=== PATIENT | male | born 1935 | race Caucasian/White ===

== ENCOUNTER 2018-05-05 19:21 | Inpatient (IN) | payer MEDICARE, BC ==
[~2018-05-05] VITALS: Ht 175.3 cm; Wt 80.3 kg
[~2018-05-05 19:21] MED LIST: ACET325T53 PO; ALBUT2 HHN; ASPI-605 PO; CHOL20004 PO; DOCU100C36 PO; DOFE125C PO; DOXA4TAB3 PO; FINA5TAB4 PO; FURO-145 PO; HYDR-4076 PO; IPRA0.2S49 NEB; IRBE150T28 PO; LORA1TAB PO; METO25TA6 PO; ONDA4TAB11 PO; PANT40TA4 PO; POLY250017 PO; ROSU5TAB PO; SIME80TA15 PO; WARF4TAB72 PO; [UNRECOGNIZED DRUG - CODE] PO
[2018-05-06] MEDS: ACETAMINOPHEN 325 MG TABLET PO PRN ×2 (04:56→13:48)
[2018-05-06] MEDS ORDERED: MAGNESIUM HYDROXIDE 30 ML UDC PO PRN (05:00)
[2018-05-06] MEDS ORDERED: MAG HYDROX/AL HYDROX/SIMETH 30 ML UDC PO PRN (05:00)
[2018-05-06] MEDS ORDERED: TEMAZEPAM 7.5 MG CAPSULE PO PRN (05:00)
[2018-05-06 05:24] VITALS: BP 143/63
--- NOTE | 2018-05-06 06:20 | NUR ---
GPS FREELANCE PHOTOGRAPHER NOTES: ADMITTED AN 82YO MALE FROM [facility] ON 5150 HOLD FOR DANGER TO SELF. PER HOLD PATIENT IS ADMITTING TO HAVING THOUGHTS OR SUICIDE HOWEVER NOT ABLE TO STATE ANY ACTIVE PLANS TO CARRY IT OUT. PATIENT RECENTLY LOSS HIS AND HE HAS BEEN EXPRESSING THAT HE HAS NO REASON TO LOVE LIFE ANYMORE. PATIENT IS UNDER THE CARE OF DR. RAY AND BRIDGETT MACHADO NP FOR PSYCH AND MEDICAL. PATIENT BROUGHT IN THE UNIT VIA GURNEY, AND THEN USHERED INTO THE ROOM. CHANGED INTO PATIENT'S GOWN. UPON FACE TO FACE ASSESSMENT, PATIENT PRESENTS ALERT AND ORIENTED X3, COMPLAINED OF HEADACHE AT THIS TIME. HE APPEARS, DISHEVELED, UNKEMPT, WITH NOTED EPISODES OF CONFUSION, HAS PERIODS OF IRRITABILITY. PATIENT IS ABLE TO WALK WITH THE AID OF A CANE- CANE PLACED IN THE UTILITY ROOM FOR SAFEKEEPING . REALITY ORIENTATION DONE. ORIENTATION TO UNIT, STAFF, POLICIES, CARE PLAN AND DOCTORS DONE. Q15 MIN CHECKS INITIATED. CARE PLAN STARTED. DR. RAY INFORMED OF THIS ADMISSION. BELONGINGS AND CONTRABAND CHECKED. SKIN AND BODY ASSESSMENT DONE WITH RAUL Patrick RN AND TAMICA REESE. PICTURES TAKEN AND PLACED IN THE CHART. GAVE PATIENT SOME TIME TO REST AND SLEEP. PROVIDED A SLEEP CONDUCIVE ENVIRONMENT. WILL MONITOR PATIENT FOR MOOD, SAFETY AND BEHAVIOR.
[2018-05-06 07:54] LABS: CALCIUM, SERUM 8.9 mg/dL (8.5-10.1); CARBON DIOXIDE 27 mmol/L (21-32); CHLORIDE 99 mmol/L (98-107); CREATININE 0.9 mg/dL (0.6-1.3); GLUCOSE 108 mg/dL (74-106); POTASSIUM 4.4 mmol/L (3.5-5.1); SODIUM SERUM 133 mmol/L (136-145); UREA NITROGEN, BLOOD 15 mg/dL (7-18)
[2018-05-06 07:59] LABS: ALANINE AMINOTRANSFERASE 20 U/L (12-78); ALBUMIN 3.2 g/dL (3.4-5.0); ALKALINE PHOSPHATASE 50 U/L (46-116); ASPARTATE AMINOTRANSFERASE 14 U/L (15-37); BILIRUBIN,TOTAL 0.5 mg/dL (0.2-1.0); TOTAL PROTEIN, SERUM 5.3 g/dL (6.4-8.2)
[2018-05-06] MEDS: LORAZEPAM 0.5 MG TABLET PO PRN ×2 (10:38→22:57)
--- NOTE | 2018-05-06 10:47 | NUR ---
SAE contacted pts brother Suzanne [phone] to inform him pts heart medication Tikosyn needed to be brought to him due to the hospital pharmacy not carrying that medication. Brother stated he would bring pts medication on this present day.
--- NOTE | 2018-05-06 10:49 | NUR ---
SAE spoke to pts daughter Lucina [phone] regarding pts discharge plan and collateral information. SW also informed her pt was currently on a 5150 hold for danger to self. Daughter informed SW that pts 23 years ago and pt has a long history of Depression and has been refusing to take medications and also refusing care. Daughter mentioned that pt will be discharged back home and has limited support from his brother Suzanne who sometimes stays a couple of days out of the week to help pt. SAE will refer pt to home health once discharged.
[2018-05-06] MEDS ORDERED: WARF3TAB59 PO (12:30)
[2018-05-06] MEDS ORDERED: METO100T7 PO (12:37)
[2018-05-06] MEDS ORDERED: LOSA50TA39 PO (12:40)
[2018-05-06] MEDS ORDERED: AMLO5TAB4 PO (12:41)
[2018-05-06] MEDS ORDERED: CHOL200026 PO (13:35)
[2018-05-06] MEDS ORDERED: CYAN-6 PO (13:37)
[2018-05-06] MEDS ORDERED: CYAN100096 PO (13:42)
[2018-05-06] MEDS ORDERED: NITR0.4T48 SL (14:06)
[2018-05-06] MEDS ORDERED: NITROGLYCERIN 0.4 MG/TAB BOTTLE SL PRN (15:30)
[2018-05-06] MEDS ORDERED: LOSARTAN POTASSIUM 50 MG TABLET PO SCH (15:30)
[2018-05-06] MEDS ORDERED: DOXAZOSIN MESYLATE (4 MG) 4 MG TABLET PO SCH (15:30)
[2018-05-06] MEDS ORDERED: FINASTERIDE (5 MG) 5 MG TABLET PO SCH (15:30)
[2018-05-06] MEDS: ASPIRIN EC 81 MG TABLET.DR PO SCH (15:39)
[2018-05-06] MEDS: CHOLECALCIFEROL 1,000 UNIT TABLET (VIT D3) PO SCH (15:39)
[2018-05-06] MEDS: TIKOSYN 500 MCG PO SCH (15:56)
[2018-05-06] MEDS: CYANOCOBALAMIN 500 MCG TABLET PO SCH (15:58)
[2018-05-06 16:00] VITALS: BP 149/61
[2018-05-06] MEDS: LORAZEPAM 1 MG TABLET PO SCH (16:01)
[2018-05-06] MEDS: PANTOPRAZOLE 40 MG TABLET.DR PO SCH (16:01)
[2018-05-06] MEDS: METOPROLOL SUCCINATE 50 MG TAB.SR.24H PO SCH (16:10)
[2018-05-06] MEDS ORDERED: AMLODIPINE BESYLATE 5 MG TABLET PO SCH (17:00)
[2018-05-06 20:21] VITALS: BP 125/59
[2018-05-06] MEDS ORDERED: clonazePAM 0.5 MG TABLET PO PRN (20:30)
[2018-05-06 22:00] VITALS: BP 166/76
[2018-05-06] MEDS: DOXAZOSIN MESYLATE (4 MG) 4 MG TABLET PO SCH (22:23)
[2018-05-06] MEDS: FINASTERIDE (5 MG) 5 MG TABLET PO SCH (22:23)
[2018-05-06] MEDS: AMLODIPINE BESYLATE 5 MG TABLET PO SCH (22:24)
[2018-05-06] MEDS: LOSARTAN POTASSIUM 50 MG TABLET PO SCH (22:24)
--- NOTE | 2018-05-06 22:41 | NUR ---
RECEIVED PATIENT IN THE ROOM ALERT, ORIENTED X 3 DENIES ANY PAIN OR N/V AT THIS TIME ALL NIGHT B.P MEDICATION ADMINISTERED TO THE PATIENT SUDDENLY PATIENT STATED HE WANTS HIS METOPROLOL RIGHT NOW EXPLAIN PATIENT X 3 METOPROLOL IS NOT DUE UNTIL MORNING BUT PATIENT PATIENT CONTINUES ASKING HIS METOPROLOL SAYING I NEED TO CALL MY PRIMARY FROM OUT SIDE. PATIENT IS VERY ANXIOUS AT THIS TIME ATIVAN 0.5 ADMINISTERED ORDERED WILL CONTINUES TO MONITOR THE PATIENT FOR SAFETY.
[2018-05-06 23:00] VITALS: BP 150/70
--- NOTE | 2018-05-06 23:00 | NUR ---
GPS RN NOTE: PT.C/O VERY ANXIOUS SCREAMING YELLING RESTLESS BP 150 /70 ,ATIVAN 0.5 MG PO PRN GIVEN , WILL CONTINUE TO MONITOR.
[2018-05-07] VITALS: BP 145/68
--- NOTE | 2018-05-07 02:35 | NUR ---
GPS RN NOTES: PATIENT'S VITAL SIGNS TAKEN. BP 141/61, HR-64, O2 SAT- 97%. PATIENT NOTED TO BE ANXIOUS AND FOCUSED ON HIS MEDICATION. REASSURED PATIENT OF NURSES PRESENCE AND TO ASK FOR HELP WHENEVER HE FEELS UNSAFE. WILL KEEP MONITORING PATIENT'S MOOD,HIS SAFETY AND BEHAVIOR WELL.
[2018-05-07] MEDS: TIKOSYN 500 MCG PO SCH ×2 (07:57→16:42)
[2018-05-07] MEDS: METOPROLOL SUCCINATE 50 MG TAB.SR.24H PO SCH (07:58)
[2018-05-07] MEDS: CHOLECALCIFEROL 1,000 UNIT TABLET (VIT D3) PO SCH (07:58)
[2018-05-07] MEDS: LORAZEPAM 1 MG TABLET PO SCH ×3 (07:58→16:42)
[2018-05-07] MEDS: CYANOCOBALAMIN 500 MCG TABLET PO SCH (07:58)
[2018-05-07] MEDS: ASPIRIN EC 81 MG TABLET.DR PO SCH (07:58)
[2018-05-07] MEDS: PANTOPRAZOLE 40 MG TABLET.DR PO SCH ×2 (07:58→16:42)
[2018-05-07 08:00] VITALS: BP 144/72
[2018-05-07] MEDS: ATORVASTATIN 10 MG TABLET PO SCH (08:03)
[2018-05-07] MEDS ORDERED: METOPROLOL SUCCINATE 50 MG TAB.SR.24H PO SCH (09:00)
--- NOTE | 2018-05-07 09:39 | NUR ---
INITIAL DISCHARGE PLAN: Patient wishes to be discharged home [address] [place] [address]. Pts daughter Lucina [phone] stated pt is able to return home. SW will help form a safe and proper discharge in collaboration with MD.
[2018-05-07 16:00] VITALS: BP_SYST 108; BP_SYST 120; BP_DIAS 54; BP_DIAS 69
[2018-05-07] MEDS ORDERED: WARFARIN SODIUM 1 MG TABLET PO SCH (17:00)
[2018-05-07 19:48] VITALS: BP 138/64
[2018-05-07] MEDS: FINASTERIDE (5 MG) 5 MG TABLET PO SCH (21:11)
[2018-05-07] MEDS: DOXAZOSIN MESYLATE (4 MG) 4 MG TABLET PO SCH (21:11)
[2018-05-07] MEDS: LOSARTAN POTASSIUM 50 MG TABLET PO SCH (21:11)
[2018-05-07] MEDS: AMLODIPINE BESYLATE 5 MG TABLET PO SCH (21:12)
[2018-05-07] MEDS: LORAZEPAM 0.5 MG TABLET PO PRN (22:23)
[2018-05-08 08:00] VITALS: BP 140/64
[2018-05-08] MEDS: ATORVASTATIN 10 MG TABLET PO SCH (09:00)
--- NOTE | 2018-05-08 09:00 | NUR ---
RN-CO: DR RAY ORDERED TO DISCONTINUE HOLD AND DISCHARGE PATIENT WITH DAUGHTER.NOTED. PATIENT DENIED SI/HI. DENIED AUDITORY AND VISUAL HALLUCINATION.
--- NOTE | 2018-05-08 09:37 | NUR ---
SW received a call from pts melecio Oliveros [phone] requesting pt be discharged immediately stating that if pt is not discharged she will get her master control engineer involved. SW explained that pt is currently on a 5150 hold for danger to self and cannot be discharged unless the psychiatrist Dr. Ceballos breaks the hold and feels pt is stable for discharge. SW asked daughter if she has DPOA and she stated she did not. Daughter asked SW to contact Dr Ceballos and ask him to discharge. SW stated she would contact Psychiatrist and explain she is requesting discharge as soon as possible for pt.
--- NOTE | 2018-05-08 09:44 | NUR ---
SW contacted Dr. Ceballos and broke pts hold.
--- NOTE | 2018-05-08 09:45 | NUR ---
SAE contacted pts daughter Arlin [phone] Ceballos has discharged pt. She stated pts brother Suzanne will be coming to pick pt up and transporting home.
[2018-05-08] MEDS: ASPIRIN EC 81 MG TABLET.DR PO SCH (10:11)
[2018-05-08] MEDS: CHOLECALCIFEROL 1,000 UNIT TABLET (VIT D3) PO SCH (10:12)
[2018-05-08] MEDS: CYANOCOBALAMIN 500 MCG TABLET PO SCH (10:12)
[2018-05-08] MEDS: PANTOPRAZOLE 40 MG TABLET.DR PO SCH (10:13)
[2018-05-08] MEDS: METOPROLOL SUCCINATE 50 MG TAB.SR.24H PO SCH (10:13)
[2018-05-08] MEDS: LORAZEPAM 1 MG TABLET PO SCH ×2 (10:20→12:15)
[2018-05-08] MEDS: TIKOSYN 500 MCG PO SCH (10:21)
--- NOTE | 2018-05-08 12:31 | NUR ---
GPS RN NOTE: RECEIVED D/C ORDER FROM DR. RAY AND TO CONTINUE KLONOPIN ONLY ORDERED NOTED AND CARRIED OUT.
--- NOTE | 2018-05-08 14:58 | NUR ---
DISCHARGE NOTE: Pt will be discharged at 3:30pm [address] [facility] [address] [facility] [place] [address]. Pts brother Suzanne [phone] will be transporting pt home. Pts mood was euthymic with congruent affect. Pt denied visual/auditory hallucinations and denied suicidal/homicidal ideations. Pts daughter stated she would schedule a follow up appointment with Psychiatrist: Dr. Davy Haq [address], [place] [address] [phone]. faxed JODI paperwork to [phone]. Pt will also follow up with Digital Imaging Technician: Dr. Jacobo Joseph [address], [place] [address] [phone]. The multidisciplinary exitcare form was done, printed, signed, and given to the patient.
[2018-05-08 16:00] VITALS: BP 136/63
--- NOTE | 2018-05-08 16:02 | NUR ---
PATIENT DISCHARGE TO HOME PICKED UP BY THE BROTHER, NO SOB, NO ACUTE DISTRESS, BREATHING EVEN AND UNLABORED, NO S/S OF PAIN AND DISCOMFORT, DENIES SI/HI, PATIENT ASSISTED DOWN TO ELEVATOR VIA WHEELCHAIR
== END 2018-05-08 16:02 | disposition home or self-care (01) | DRG 885 ==
LOC: GPS 05-06 04:07 → UNDOADMIN 05-06 04:07 → GPS 05-06 04:08 → UNDOLOA 05-08 01:38 → GPS 05-08 09:18
PROVIDERS: ADMIT Psychiatry & Neurology Psychiatry; ATTEND Psychiatry & Neurology Psychiatry
DX: F39 Unspecified mood [affective] disorder (principal); I42.9 Cardiomyopathy, unspecified; R45.851 Suicidal ideations; F41.9 Anxiety disorder, unspecified; F41.0 Panic disorder [episodic paroxysmal anxiety]; E78.5 Hyperlipidemia, unspecified; I71.4 Abdominal aortic aneurysm, without rupture; I25.10 Atherosclerotic heart disease of native coronary artery without angina pectoris; Z95.810 Presence of automatic (implantable) cardiac defibrillator; Z95.2 Presence of prosthetic heart valve; Z95.1 Presence of aortocoronary bypass graft; Z87.891 Personal history of nicotine dependence; Z81.8 Family history of other mental and behavioral disorders; I10 Essential (primary) hypertension; L40.9 Psoriasis, unspecified; I48.0 Paroxysmal atrial fibrillation; I48.91 Unspecified atrial fibrillation; J44.9 Chronic obstructive pulmonary disease, unspecified; I05.0 Rheumatic mitral stenosis
CPT/HCPCS: 36415; 80053-TC; 85610-TC